=== PATIENT | male | born 1995 | race Caucasian/White ===

== ENCOUNTER 2018-10-22 17:45 | Emergency (ER) | payer OTHER ==
[~2018-10-22] VITALS: Ht 190.5 cm; Wt 120.7 kg
[2018-10-22 17:48] VITALS: BP 150/82
--- NOTE | 2018-10-22 19:18 | NUR ---
Pt for discharge- Aftercare instructions given- verbalized understanding Home ambulatory No obvious distress Stable
== END 2018-10-22 19:22 | disposition home or self-care (01) ==
LOC: ER 17:51
DX: G43.909 Migraine, unspecified, not intractable, without status migrainosus (principal); F41.9 Anxiety disorder, unspecified
CPT/HCPCS: 70450; 99284; A4606

== ENCOUNTER 2019-06-09 00:47 | Inpatient (IN) | payer SELFPAY ==
[~2019-06-09] VITALS: Ht 190.5 cm; Wt 121.1 kg
--- NOTE | 2019-06-09 00:50 | NUR ---
PT BIBSELF C/O "HEART PALPITATIONS" X 1HR. NO PAIN, +DYSPNEA. PT AXO4. RESPIRATIONS EVEN AND UNLABORED. PT SPEAKING IN FULL SENTENCES. PT AMBULATORY WITH STEADY GAIT. 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 PENDING EVAL FROM ER .
[2019-06-09] MEDS ORDERED: Calcium Gluconate 0.465 MEQ/ML VIAL IV ONE ×2 (01:52→02:00)
[2019-06-09] MEDS ORDERED: DILTIAZEM HCL 25 MG IV ONE (01:53)
--- NOTE | 2019-06-09 01:55 | NUR ---
18G RAC IV STARTED, LABS DRAWN AND SENT TO LAB.
[2019-06-09] MEDS ORDERED: ASPIRIN 81 MG TAB.CHEW ONE (01:57)
[2019-06-09] MEDS ORDERED: DILTIAZEM HCL 50 MG IV IV ONE (02:00)
[2019-06-09] MEDS ORDERED: ASPIRIN 81 MG TAB.CHEW PO ONE (02:00)
[2019-06-09] MEDS ORDERED: DILTIAZEM HCL IV 125 MG in IV NS 0.9% 100 ML IV PRN (02:00)
[2019-06-09] MEDS ORDERED: DILTIAZEM HCL 50 MG IV ONE (02:08)
--- NOTE | 2019-06-09 02:10 | NUR ---
PT BRADYCARDIC ON THE MONITOR, PT FEELING DIZZY, ER MD AWARE. PT PLACED IN REVERSE TRENDELENBERG.
--- NOTE | 2019-06-09 02:12 | NUR ---
ER MD AT BEDSIDE, PT HR INCREASING TO MID 60S ON THE MONITOR, PT STATES FEELING BETTER.
[2019-06-09] MEDS ORDERED: ONDANSETRON HCL/PF 4 MG/2 ML VIAL ONE (02:13)
[2019-06-09 02:20] LABS: BASOPHILS # (AUTO) 0.1 /CMM (0.0-0.2); BASOPHILS % (AUTO) 0.9 % (0.0-2.0); EOSINOPHILS % (AUTO) 1.5 % (0.0-6.0); HEMATOCRIT 48 % (39-51); HEMOGLOBIN 17.1 g/dL (13.5-17.5); LYMPHOCYTES # (AUTO) 2.6 /CMM (0.8-4.8); LYMPHOCYTES % (AUTO) 33.1 % (20.0-44.0); MEAN CORPUSCULAR HGB CONC 36 g/dl (31.0-36.0); MEAN CORPUSCULAR VOLUME 86 fL (80-96); MONOCYTES # (AUTO) 0.8 /CMM (0.1-1.30); MONOCYTES % (AUTO) 10.5 % (2.0-12.0); NEUTROPHILS # (AUTO) 4.3 /CMM (1.8-8.9); PLATELET COUNT (AUTO) 235 /CMM (150-450); RED BLOOD CELL COUNT(AUTO) 5.56 MIL/uL (4.5-6.0)
[2019-06-09 02:23] LABS: CALCIUM, SERUM 8.9 mg/dL (8.5-10.1); CARBON DIOXIDE 27 mmol/L (21-32); CHLORIDE 103 mmol/L (98-107); GLUCOSE 119 mg/dL (74-106); POTASSIUM 4.1 mmol/L (3.5-5.1); SODIUM SERUM 139 mmol/L (136-145); UREA NITROGEN, BLOOD 7 mg/dL (7-18)
--- NOTE | 2019-06-09 02:25 | NUR ---
PT STATES FEELING BETTER, HR IN 60S. PT AXO4. DENIES ANY DIZZINESS OR NAUSEA.
[2019-06-09] MEDS ORDERED: ONDANSETRON HCL/PF - ER 4 MG/2 ML VIAL IV ONE (02:30)
[2019-06-09 02:35] LABS: ALANINE AMINOTRANSFERASE 83 U/L (12-78); ALBUMIN 4.1 g/dL (3.4-5.0); ALKALINE PHOSPHATASE 65 U/L (46-116); ASPARTATE AMINOTRANSFERASE 33 U/L (15-37); B-TYPE NATRIURETIC PEPTIDE 10 PG/ML (0-125); BILIRUBIN,DIRECT 0.2 mg/dL (0.0-0.2); BILIRUBIN,TOTAL 1.2 mg/dL (0.2-1.0); TOTAL PROTEIN, SERUM 7.6 g/dL (6.4-8.2)
[2019-06-09 02:40] LABS: D-DIMER 0.19 mg/L(FEU (0.17-0.50)
--- NOTE | 2019-06-09 03:21 | NUR ---
PT RESTING IN BED, NAD DISTRESS NOTED. WILL CONTINUE TO MONITOR.
[2019-06-09] MEDS ORDERED: IV NS 0.9% 1,000 ML IV PRN (04:30)
[2019-06-09] MEDS ORDERED: HYDROCODONE/APAP 5/325MG 1 EACH TABLET PO PRN (04:30)
[2019-06-09] MEDS ORDERED: MAG HYDROX/AL HYDROX/SIMETH 30 ML UDC PO PRN (04:30)
[2019-06-09] MEDS ORDERED: ONDANSETRON HCL/PF 4 MG/2 ML VIAL IVP PRN (04:30)
[2019-06-09] MEDS ORDERED: MAGNESIUM HYDROXIDE 30 ML UDC PO PRN (04:30)
[2019-06-09] MEDS ORDERED: Z GUARD REMEDY 2 OZ OINT TP PRN (04:30)
[2019-06-09] MEDS ORDERED: ZOLPIDEM TARTRATE 5 MG TABLET PO PRN (04:30)
[2019-06-09] MEDS ORDERED: ACETAMINOPHEN 325 MG TABLET PO PRN (04:30)
--- NOTE | 2019-06-09 04:38 | NUR ---
CALLED RN SUP FOR TELE BED
--- NOTE | 2019-06-09 04:57 | NUR ---
PT ASSIGNED TO 304-2
--- NOTE | 2019-06-09 05:01 | NUR ---
REPORT GIVEN TO ALLY MCDANIELS FOR C.O.C
--- NOTE | 2019-06-09 05:06 | NUR ---
PT TRANSFERRED TO TELE PER [employer]S PROT[employer]OL
--- NOTE | 2019-06-09 05:10 | NUR ---
ADMISSION NOTES: RECEIVED REPORT FROM RAFAEL ASCENCIO RN. PT BROUGHT TO THE UNIT VIA GURNEY. PT IS A/O X4, ON RA, DENIES ANY PAIN OR DISCOMFORT AT THIS TIME. STATED HE FEELS HIS HEART IS POUNDING ON AND OFF. ORIENTED PT TO UNIT POLICY AND HOURLY ROUNDING, USE OF CALL LIGHT. PT HAS NO MEDICAL HISTORY, BUT ADMIT TO USING MARIJUANA , LAST USE WAS 2 WEEKS AGO. PT HAS IV ACCESS ON RIGHT AC G 18 PATENT AND FLUSHING WELL, ON HL. CONNECTED TO TELE MONITORING, CURRENTLY AFIB CONTROLLED HR 78. PT ON CARDIAC DIET. SKIN ASSESSMENT PERFORMED, NO SKIN ISSUES NOTED. INVENTORY OF BELONGING COMPLETED BY [employer] [place]. DISCUSSED PLAN OF CARE TO PT AND FAMILY. SAFETY PRECAUTIONS FOR FALL INITIATED, CALL LIGHT IN REACH, WILL CONTINUE MONITORING PT.
[2019-06-09 05:12] LABS: CHOLESTEROL 148 mg/dL (<200); HDL CHOLESTEROL 27 mg/dL (40-60); LDL 96 mg/dL (0-99); TRIGLYCERIDES 243 mg/dL (30-150)
[2019-06-09 05:15] VITALS: BP 127/82
[2019-06-09 05:34] VITALS: BP 127/82
--- NOTE | 2019-06-09 06:56 | NUR ---
RN CLOSING NOTES: PT SLEEPING, APPEARS CALM AND COMFORTABLE, NO FACIAL GRIMACE NOTED. REMAINS ON AFIB CONTROLLED HR 89. IV ACCESS REMAINS PATENT AND FLUSHING WELL, INFUSING WITH NS AT 75ML/HR, IV ACCESS FREE FROM S/S OF IV INFILTRATIN. VS REMAINS STABLE, NEEDS ATTENDED. FOR ECHO TODAY. SAFETY PRECAUTIONS FOR FALL REMAINS ENGAGED, CALL LIGHT IN REACH, WILL ENDORSE TO DAY RN FRO CONTINUITY OF CARE.
--- NOTE | 2019-06-09 07:27 | NUR ---
RN OPENING NOTE RECEIVED PATIENT IN BED SLEEPING COMFORTABLY. PATIENT IN NO ACUTE DISTRESS. NO SOB NOTED. PATIENT BREATHING IS EVEN AND UNLABORED. GIRLFRIEND IS AT THE BEDSIDE. SAFETY PRECAUTIONS IN PLACE. PATIENT ON CARDIAC MONITORING WITH SINUS RHYTHM HR 75. NO FACIAL GRIMACING NOTED. PATIENT BED IS LOCKED AND IN LOWEST POSITION. CALL LIGHT WITHIN REACH. WILL CONTINUE TO MONITOR. Addendum: 06/09/19 at 0732 by TRISHA BABIN RN TERRAZZO MECHANIC OPENING NOTE
[2019-06-09 08:00] VITALS: BP 124/75
[2019-06-09] MEDS ORDERED: ENOXAPARIN SODIUM 40 MG/0.4 ML DISP.SYRIN SQ SCH (09:00)
--- NOTE | 2019-06-09 13:00 | NUR ---
MS RN NOTE OFFERED FLU VACCINE, PATIENT REFUSES. EXPLAINED RISKS VS BENEFITS. PATIENT STATES " I JUST HAD THE FLU RECENTLY AND IM STILL COMING DOWN WITH IT. I DONT PREFER TO HAVE IT RIGHT NOW."
--- NOTE | 2019-06-09 15:00 | NUR ---
MS MANAGER VALUATION NOTE PATIENT MEDICALLY STABLE FOR DISCHARGE. PATIENT IN NO ACUTE DISTRESS. NO SOB NOTED. PATIENT BREATHING IS EVEN AND UNLABORED. DC INSTRUCTIONS PROVIDED. PATIENT VERBALIZED UNDERSTANDING WITH GIRLFRIEND PRESENT. PATIENT REFUSED TO HAVE SKIN ASSESSMENT. PATIENT STATES " NO ITS COOL, I DONT NEED A SKIN ASSESSMENT MY SKIN IS GOOD". EXPLAINED RISKS VS BENEFITS. PATIENT CONTINUED TO REFUSE. PATIENT ID BAND REMOVED. IV REMOVED. PATIENT SIGNED BELONGINGS LIST AND HAS ALL BELONGINGS WITH HIM. PATIENT KEPT CLEAN AND DRY THROUGHOUT MY SHIFT. NEEDS AND CONCERNS ADDRESSED. PRESCRIPTION GIVEN TO PATIENT ALONG WITH DC PACKET. PATIENT GOING BACK HOME WITH GIRLFRIEND BY CAR. PATIENT IS AMBULATORY TO CAR. MD AWARE OF DISCHARGE.
== END 2019-06-09 15:00 | disposition home or self-care (01) | DRG 310 ==
LOC: ER 00:49 → TELE 04:59 → MED 08:44
PROVIDERS: ADMIT Nurse Practitioner Acute Care; ATTEND Nurse Practitioner Acute Care
DX: I48.91 Unspecified atrial fibrillation (principal); G47.33 Obstructive sleep apnea (adult) (pediatric); F12.90 Cannabis use, unspecified, uncomplicated; Z68.33 Body mass index [BMI] 33.0-33.9, adult; E66.9 Obesity, unspecified
CPT/HCPCS: 36415; 71045-TC; 80048-TC; 80061-TC; 80076-TC; 83880; 84484-TC; 85025-TC; 85378-TC; 85730-TC; 87081-TC; 93307-TC; A4216; G0378; J0610; J1650; J2405; J3490; J7030